=== PATIENT | male | born 1965 | race Two or more races ===

== ENCOUNTER → 2023-06-06 | Day surgery (SDC) | payer BC ==
[~2023-06-06] VITALS: Ht 170.2 cm; Wt 81.6 kg
[~2023-06-06] MED LIST: AMLO5TAB88 PO; BUPIVACAINE HCL/PF 0.5% (5MG/ML) 10ML ONE; FEBU40TA PO; FENTANYL CITRATE/PF 50MCG/ML 2ML VIAL IV PRN; FENTANYL CITRATE/PF 50MCG/ML 2ML VIAL ONE; HYDROCODONE/ACETAMINOPHEN 5/325MG TABLET PO PRN; HYDROMORPHONE HCL/PF 2MG/ML CPJ IV PRN; LACTATED RINGERS 1,000 ML IV SCH; LIDOCAINE HCL 1% 10 MG/ML 10ML VIAL ONE; LIDOCAINE HCL/EPINEPHRINE 1%-EPI 1:100,000 20 ML VIAL ONE; LOSA100T33 PO; MIDAZOLAM HCL 2 MG/2 ML VIAL ONE; MORPHINE SULFATE 2 MG/ML CPJ (NOT FOR IM USE) IV PRN; NALOXONE HCL 0.4MG/ML VIAL IV PRN; ONDANSETRON HCL 4MG/2ML INJ IV PRN; OXYC-100 MT; P20 MT; POLYMYXIN B SULFATE 500000 UNITS/VIAL ONE; PROPOFOL 10MG/ML 100ML 100 ML IV ONE; SKIN ADHESIVE 0.7 GM EA TOP ONE; SODIUM CHLORIDE 0.9% INJ 3ML FLUSH IVF SCH; TAMS-11 PO
== END | disposition home or self-care (01) ==
LOC: OR 07:12
DX: M67.432 Ganglion, left wrist (principal); I10 Essential (primary) hypertension; E78.5 Hyperlipidemia, unspecified; N40.0 Benign prostatic hyperplasia without lower urinary tract symptoms; M10.9 Gout, unspecified; Z79.899 Other long term (current) drug therapy; Z98.890 Other specified postprocedural states; Z91.013 Allergy to seafood; Z88.8 Allergy status to other drugs, medicaments and biological substances
CPT/HCPCS: 25111; 88304; J3010; J3490 ×4; J2250; J2704; A4565